=== PATIENT | female | born 1985 | race Native Hawaiian/Other Pacific Islander ===

== ENCOUNTER 2018-02-08 13:40 | Emergency (ER) | payer BC ==
--- NOTE | 2018-02-08 14:41 | OBHP ---
Datetime: 02/08/2018 14:34 IP Adm Impression: Term, intrauterine ; No Active Labor; Intact Membranes IP Admit Plan: Observation/Evaluation; Discharge home Admit Comment, IP Provider: Pt presented to [facility] with complaints of decreased FM. Here today for NST> PGYNHx: none POBHx: none PSHx: none Social: negative x 3 meds :none ALL; NKDA SVE: /-2 A/P 34 @ 38 weeks with compalints of decreased FM. 1) VSS: afebrile. 2) NST: category 1 3) SVE: /-2 early labor. labor precautions given to the patient. 4) negative nitrazine paper 5) Discharge home. Pelvic Type - PN: Adequate Extremities - PN: Normal Abdomen - PN: Normal Back - PN: Normal Breast - PN: Normal Lungs - PN: Normal Heart - PN: Normal Thyroid - PN: Normal Neurologic - PN: Normal HEENT - PN: Normal General - PN: Normal FHR - Baseline A Provider: 150 Membranes, Provider: Intact Comments, ACOG Physical Exam: Negative nitrazine paper. SVE: - Gestation - Est Wks by US: 38.0 Pool Provider: Negative EGA AdmitDate IP: 38.1 IP Chief Complaint: Decreased movement NICHD Variability Prov Fetus A: Moderate 6-25bpm NICHD Accel Fetus A IP Provider: 15X15 NICHD Decel Fetus A IP Provider: None Dilatation, Provider: 4 Effacement, Provider: 60 Station, Provider: -2 Genitourinary Exam: Normal DTRs - PN: Normal Dr Signature: tori childs
[2018-02-08 18:49] VITALS: BP 112/75; PULSE 88; RESP 18; TEMP 98.2; O2SAT 97
== END 2018-02-08 14:38 | disposition home or self-care (01) ==
LOC: C.EROB 13:40
DX: O36.8130 Decreased fetal movements, third trimester, not applicable or unspecified (principal); Z3A.38 38 weeks gestation of pregnancy

== ENCOUNTER 2018-02-08 20:59 | Inpatient (IN) | payer BC ==
[2018-02-08 21:11] VITALS: BMI 29.3
--- NOTE | 2018-02-08 21:29 | OBADHP ---
Datetime: 02/08/2018 21:22 Admit Comment, IP Provider: Pt presents today with complaints of rupture of membranes at 8:30pm. Den ies vaginal bleeding. +CTX. POBHx: none PGYNx: none PMHx: none PSHx:none Social: negative x 3 MEds: none ALL; NKDA A/P @ 38.1 with SROM 1) VSS: afebrile. 2) Admit 3) NPV 4) IVF 5) Labor augmentation with pitocin. 6) Plan d/w Dr. Dewitt. Pelvic Type - PN: Adequate Extremities - PN: Normal Abdomen - PN: Normal Back - PN: Normal Breast - PN: Normal Lungs - PN: Normal Heart - PN: Normal Thyroid - PN: Normal Neurologic - PN: Normal HEENT - PN: Normal General - PN: Normal FHR - Baseline A Provider: 140 Membranes, Provider: Ruptured Contraction Comments Provider: irregular. Comments, ACOG Physical Exam: SVE: 4/80/-2 Gestation - Est Wks by US: 38 / Pool Provider: Positive Nitrazine Provider: Positive Vital Signs Provider: Reviewed IP Chief Complaint: Uterine contractions NICHD Variability Prov Fetus A: Moderate 6-25bpm NICHD Accel Fetus A IP Provider: 15X15 NICHD Decel Fetus A IP Provider: None Dilatation, Provider: 4 Effacement, Provider: 80 Station, Provider: -2 Genitourinary Exam: Normal DTRs - PN: Normal EGA AdmitDate IP: 38.1 IP Adm Impression: Term, intrauterine ; No Active Labor; Ruptured Membranes IP Admit Plan: Admit to unit; Initiate labor augmentation protocol Dr Signature: tori childs
[2018-02-08] MEDS ORDERED: Oxytocin 30 UNIT 30 UNITS/500 ML BAG IV SCH (21:30)
[2018-02-08] MEDS ORDERED: Lactated Ringer's 1,000 ML IV SCH (21:30)
[2018-02-08] MEDS ORDERED: Oxytocin 30 UNIT 30 UNITS/500 ML BAG IV ONE (22:07)
[2018-02-08 22:24] LABS: BASO % 0.1 % (0.0-2.0); EOS # 0.1 K/uL (0.0-0.7); EOS % 0.4 % (0.0-4.0); HEMOGLOBIN 10.6 g/dL (11.0-16.0); LYMPH # 1.8 K/uL (1.0-4.3); LYMPH % 11.4 % (20.0-40.0); MEAN CELL VOLUME 79.3 fL (81.0-99.0); MEAN CORPUSCULAR HEMOGLOBIN 25.7 pg (27.0-31.0); MEAN CORPUSCULAR HGB CONC 32.4 g/dL (33.0-37.0); MEAN PLATELET VOLUME 7.9 fL (7.2-11.7); MONO # 0.9 K/uL (0.0-0.8); MONO % 5.5 % (0.0-10.0); NEUT # 13.2 K/uL (1.8-7.0); NEUT % 82.6 % (50.0-75.0); RBC 4.13 Mil/uL (3.80-5.20); RED CELL DISTRIBUTION WIDTH 13.5 % (11.5-14.5)
[2018-02-08 22:27] LABS: SQUAMOUS EPITHIAL 1 /hpf (0-5); URINE BILIRUBIN NEGATIVE (NEGATIVE); URINE BLOOD 2+ (NEGATIVE); URINE CLARITY Clear (Clear); URINE COLOR Straw (YELLOW); URINE GLUCOSE (UA) NORMAL (Normal); URINE LEUKOCYTE ESTERASE TRACE Leu/uL (Negative); URINE PROTEIN NEGATIVE (NEGATIVE); URINE UROBILINOGEN NORMAL mg/dL (0.2-1.0)
[2018-02-08 22:41] LABS: ALB/GLOB RATIO 1.2 (1.0-2.1); ALBUMIN 3.8 g/dL (3.5-5.0); ALT/SGPT 23 U/L (9-52); AST/SGOT 25 U/L (14-36); BLOOD UREA NITROGEN 9 mg/dL (7-17); GFR AFRICAN-AMERICAN > 60; GFR NON-AFRICAN AMERICAN > 60
[2018-02-08] MEDS ORDERED: Bupivacaine HCl/FentaNYL Cit 100 ML EPI ONE (23:35)
[2018-02-09] MEDS ORDERED: Bupivacaine HCl 0.25% PF (30 ml) Inj ONE (00:05)
[2018-02-09] MEDS ORDERED: Lidocaine Hydrochloride 0 ML INJ ONE (02:13)
--- NOTE | 2018-02-09 02:22 | OBPN ---
Datetime: 02/09/2018 02:20 IP Progress Impression: Normal progression of labor IP Informed Consent Obtain: Vaginal Delivery IP Progress Plan: Continue present management; Anticipate Vaginal Delivery Membranes, Provider: Ruptured FHR - Baseline A Provider: 150 Gestation - Est Wks by US: 38.2 Presentation-Admit: Vertex IP Progress Note Comment: pt admitted for ROM in labor s/p pediural pitocon augmetioatn repots pressure vss ve 10cm EMF: cat i toco: q 3-5 min a/p @ 38.2 wks fully diltaed stsart pushign anticpa nsvsd NICHD Variability Prov Fetus A: Moderate 6-25bpm Dilatation, Provider: 10 Effacement, Provider: 100 Station, Provider: 0 NICHD Decel Fetus A IP Provider: None Datetime: 02/08/2018 21:22 Pool Provider: Positive Nitrazine Provider: Positive Contraction Comments Provider: irregular. Vital Signs Provider: Reviewed NICHD Accel Fetus A IP Provider: 15X15
--- NOTE | 2018-02-09 03:24 | OBDS ---
DELIVERY PERSONNEL Delivery Doctor: Ofelia Dewitt MD Manager Acute: Alejnadra Sparrow RN Anesthesiologist: Dr. Fernandez MATERNAL INFORMATION Delivery Anesthesia: Epidural Medications in Delivery: pitocin 20 units Placenta Cultured: No Maternal Complications: None RN Comments: to a live baby boy with of 04/29 Provider Comments: pt was fully dilated. verbal consent ofr right mediolateral epistiotmy given by carol barron. Atruatmic, spontenoaud eliveyr of head ,no nuchal cord noted. atruamtic, spontnaoues delivery of anterior followed by posteiroe shoulder fllowed by delivery of the body. both oral and nasal pass ages of the baby were bulb suctioned. umbiical cord was clamped and cut. baby handed to mother on abd omen. cord blood collected and sent x 2. Spontaneous delivery of intact placenta wth membrnes. fun dus firm, goo dhemostias, right mediolateral episitomy repaired iwht 2=0 and 3-0 chromic. good hemost asis, no coplictons live male ifant agpars 9,9 weight of 6lbs 9 ounces ebl 300ml no complicaitons LABOR SUMMARY EDC: 02/21/2018 00:00 No. Babies in Womb: 1 Attempted: No Labor Anesthesia: Epidural LABOR INFORMATION Reason for Induction: Not Applicable Onset of Labor: 02/08/2018 20:30 Complete Dilatation: 02/09/2018 01:42 Oxytocin: Augmentation Group B Beta Strep: Negative Steroids Given: None Reason Steroids Not Administered: Not Applicable MEMBRANES Membranes Rupture Method: Spontaneous Rupture of Membranes: 02/08/2018 20:30 Length of Rupture (hrs): 6.45 Amniotic Fluid Color: Clear Amniotic Fluid Amount: Moderate Amniotic Fluid Odor: Normal STAGES OF LABOR Stage 1 hrs: 5 Stage 1 min: 12 Stage 2 hrs: 1 Stage 2 min: 15 Stage 3 hrs: 0 Stage 3 min: 15 Total Time in Labor hrs: 6 Total Time in Labor min: 42 VAGINAL DELIVERY Episiotomy: Right Mediolateral Laceration Extension: N/A Laceration Type: None Initial Vag Sponge Count: 10 Final Vag Sponge Count: 10 Sponge Count Correct: Yes; Vaginal Sweep Performed Sharps Count Correct: Yes Count Comment: correct BABY A INFORMATION Infant Delivery Date/Time: 02/09/2018 02:57 Method of Delivery: Vaginal Born in Route : No : N/A Forceps: N/A Vacuum Extraction: N/A Shoulder Dystocia : No SHOULDER DYSTOCIA BABY A Infant Delivery Date/Time: 02/09/2018 02:57 PRESENTATION/POSITION BABY A Presentation: Cephalic Cephalic Presentation: Vertex Vertex Position: Left Occipital Anterior Breech Presentation: N/A PLACENTA INFORMATION BABY A Placenta Delivery Time : 02/09/2018 03:12 Placenta Method of Delivery: Expressed Placenta Status: Delivered SCORES BABY A Heart Rate 1 min: >100 bpm Resp Effort 1 min: Good Cry Reflex Irritability 1 min: Cough or Sneeze or Pulls Away Muscle Tone 1 min: Active Motion Color 1 min: Body Crowell, Extremities Blue SCORE 1 MIN: 9 Heart Rate 5 min: >100 bpm Resp Effort 5 min: Good Cry Reflex Irritability 5 min: Cough or Sneeze or Pulls Away Muscle Tone 5 min: Active Motion Color 5 min: Body Crowell, Extremities Blue SCORE 5 MIN: 9 INFORMATION BABY A Gestational Age at Delivery: 38.2 Gestational Status: Term Infant Outcome : Liveborn Condition : Stable Sex: Male IDENTIFICATION/MEDS BABY A ID Band Number: [id number] ID Band Location: Left Leg; Left Arm Sensor Applied: Yes Sensor Number: [id number] Sensor Location : Cord Clamp Vitamin K Given : Aquamephyton 1 mg IM Erythromycin Given: Given Both Eyes WEIGHT/LENGTH BABY A Infant Birthweight (gms): 2990 Weight (lb): 6 Infant Weight (oz): 9 Length Inches: 19.50 Length cms: 49.5 CORD INFORMATION BABY A No. Cord Vessels: 3 Nuchal Cord : N/A Cord Blood Taken: Yes Infant Suction: Mouth ASSESSMENT BABY A Infant Complications: None Physical Findings at Delivery: Within Normal Limits Infant Respirations: Appears Normal Precision Grinder/ALS Called : No Care By: Dr. Virk Transferred To: Remains with Mother
[2018-02-09] MEDS ORDERED: Benzocaine/Menthol 20%-0.5% Topical Spray (60 ml) TOP PRN (03:25)
[2018-02-09] MEDS ORDERED: Oxycodone/Acetaminophen 5/325 mg Tab PO PRN ×2 (03:25)
[2018-02-09 08:17] VITALS: RESP 18
[2018-02-09] MEDS: Multiple Vitamins Tab PO SCH (10:26)
--- NOTE | 2018-02-10 08:46 | OBPPN ---
Datetime: 02/10/2018 08:35 PP Pain Prov: Within normal limits PP Nausea Prov: Denies PP Flatus Prov: Yes PP BM Prov: No PP Breasts Prov: Normal PP Heart Prov: Normal PP Lungs Prov: Normal PP Abdomen/Uterus Prov: Normal PP Lochia Prov: Normal PP Vulva/Perineum Prov: Normal PP CVA Tenderness Prov: Normal PP Extremities Prov: Normal PP C/S Incision Prov: Not Applicable PP Progress Prov: Normal PP Impression Prov: Normal progression PP Plan Prov: Continue present management PP Progress Note Prov: Pt seen and examined and reports pain controlled with medication. pt is ambut aing, voiidng, passing flatus, toleratign diet. pt is bresat feedign and srinivasa any sadness or depres elmer VSS PE see above a/p s/p PPD #1 am labs pain mangmnet encourage bresat feedign adn ambaitong Vital Signs Provider PP: Reviewed; Within Normal Limits
[2018-02-10 08:47] LABS: BASO # 0.1 K/uL (0.0-0.2); BASO % 0.5 % (0.0-2.0); EOS # 0.1 K/uL (0.0-0.7); EOS % 0.8 % (0.0-4.0); HEMOGLOBIN 10.4 g/dL (11.0-16.0); LYMPH # 1.7 K/uL (1.0-4.3); LYMPH % 11.8 % (20.0-40.0); MEAN CORPUSCULAR HEMOGLOBIN 26.1 pg (27.0-31.0); MEAN CORPUSCULAR HGB CONC 32.6 g/dL (33.0-37.0); MEAN PLATELET VOLUME 7.8 fL (7.2-11.7); MONO # 0.5 K/uL (0.0-0.8); MONO % 3.7 % (0.0-10.0); NEUT % 83.2 % (50.0-75.0); RBC 4.01 Mil/uL (3.80-5.20); RED CELL DISTRIBUTION WIDTH 13.6 % (11.5-14.5); WHITE BLOOD COUNT 14.4 K/uL (4.8-10.8)
[2018-02-10] MEDS ORDERED: Tdap Vaccine 0.5 ml Vial (10-64 yrs) IM ONE (09:00)
[2018-02-10] MEDS: Multiple Vitamins Tab PO SCH (09:09)
[2018-02-10 21:00] VITALS: BP 104/65; PULSE 86; TEMP 97.3; O2SAT 98
== END 2018-02-10 16:45 | disposition home or self-care (01) | DRG 775 ==
LOC: C.EROB 20:59 → C.4D 21:24 → C.4M 02-09 05:00
PROVIDERS: ADMIT Obstetrics & Gynecology; ATTEND Obstetrics & Gynecology
PROC: 0W8NXZZ Division of Female Perineum, External Approach (ICD-10-PCS; principal; 2018-02-09)
PROC: 10E0XZZ Delivery of Products of Conception, External Approach (ICD-10-PCS; 2018-02-09)
DX: O80 Encounter for full-term uncomplicated delivery (principal); Z37.0 Single live birth; Z3A.38 38 weeks gestation of pregnancy